=== PATIENT | female | born 1995 | race Caucasian/White ===

== ENCOUNTER 2021-12-23 12:39 | Emergency (ER) | payer OTHER ==
[2021-12-23 14:30] LABS: BASOPHIL 0.7 % (0-2); BILIRUBIN NEGATIVE (NEGATIVE); BLOOD NEGATIVE Ery/uL (NEGATIVE); CLARITY CLEAR (CLEAR); COLOR YELLOW (YELLOW); EOSINOPHIL 0.7 % (0-5); GLUCOSE (U) NORMAL (NORMAL); HCT 48.9 % (37.0-47.0); HGB 16.4 g/dl (12.5-16.0); LEUKOCYTES NEGATIVE Leu/uL (NEGATIVE); LYMPHOCYTE 35.1 % (15-48); MCHC 33.5 g/dL (32.0-36.0); MCV 83.6 fL (78.0-100.0); MONOCYTE 7.1 % (0-12); MPV 12.8 fL (6.0-9.5); NEUTROPHIL 56.1 % (41-80); NITRITE NEGATIVE (NEGATIVE); NRBC 0; PLT 204 K/uL (150-400); PROTEIN NEGATIVE (NEGATIVE); RBC 5.85 M/uL (4.20-5.40); SPECIFIC GRAVITY >=1.030 (1.001-1.030); UROBILINOGEN 0.2 mg/dL (0.2-1.0); WBC 7.1 K/uL (4.0-10.5)
[2021-12-23 14:43] LABS: MUCOUS MODERATE
[2021-12-23 14:47] LABS: ALBUMIN 4.4 g/dL (3.4-5.0); BILIRUBIN - TOTAL 0.8 mg/dL (0.2-1.0); BUN/CREAT RATIO (CALC) 13.4 RATIO; CREATININE 0.67 mg/dL (0.51-0.95); GLOBULIN (CALCULATION) 3.9 g/dL; POTASSIUM 3.8 mmol/L (3.5-5.1); TOTAL PROTEIN 8.3 g/dL (6.4-8.2)
== END 2021-12-23 18:40 | disposition home or self-care (01) ==
LOC: FER 12:39
PROVIDERS: Physician Assistant
DX: R10.2 Pelvic and perineal pain (principal); I10 Essential (primary) hypertension; F17.290 Nicotine dependence, other tobacco product, uncomplicated; Z32.01 Encounter for pregnancy test, result positive; Z88.8 Allergy status to other drugs, medicaments and biological substances; Z28.311 Partially vaccinated for COVID-19
CPT/HCPCS: 36415; 76817; 80053; 81001; 84702; 85025